=== PATIENT | male | born 1950 | race Caucasian/White ===

== ENCOUNTER 2016-09-26 02:07 | Emergency (ER) | payer BC, MEDICARE ==
[2016-09-26 02:25] VITALS: BP 111/57
[2016-09-26] MEDS ORDERED: Sodium Chloride 0.9% 1,000 ML IV SCH (03:00)
--- NOTE | 2016-09-26 03:08 | EDM.PDOC ---
ED HPI GENERAL MEDICAL PROBLEM - General Chief Complaint: General Stated Complaint: RUE LIMITED MOVEMENT Time Seen by Provider: 09/26/16 02:10 Source of Information: Reports: Patient History Limitations: Reports: No Limitations - History of Present Illness INITIAL COMMENTS - FREE TEXT/NARRATIVE: Pt is a 66/male with PMH of MVR on coumadin from [place], [place] who is here on fishing trip. Pt claims that about 1 wk ago he had fishhook in his right thumb which he took it out himself. Since then he had pain in his right thumb which was a very mild dull pain. But around 6 Pm today he started having pain in his right hand distal to the distal Palmar crease and his finger, but he [place] and soon around 10 PM pain started to get worse and he noticed swelling and redness in the fingers and hand and pain all over the hand. Pain worsens with movement of the fingers. Apparently patient got concerned and came into emergency room. Pt is not sure of his last tetanus shot. No fever or chills. No nausea or vomiting. rate pain at 10/10. Onset: Today Onset Date: 09/26/16 Onset Time: 06:00 Location: Reports: Other (right hand) Quality: Reports: Ache, Throbbing Severity: Severe Right Hand Pain Score (Numeric/FACES): 10 - Related Data Allergies Allergy/AdvReac Type Severity Reaction Status Date / Time No Known Allergies Allergy Verified 09/26/16 02:10 Home Meds: Home Meds Warfarin [Coumadin] 12.5 mg PO DAILY 09/26/16 [History] Past Medical History HEENT History: Reports: Impaired Vision Cardiovascular History: Reports: Stents Respiratory History: Reports: COPD, Other (See Below) Other Respiratory History: Emphysema Hematologic History: Reports: Anticoagulation Therapy - Past Surgical History HEENT Surgical History: Reports: Tonsillectomy Cardiovascular Surgical History: Reports: Valve Replacement, Other (See Below) Other Cardiovascular Surgeries/Procedures: Mitral Valve replacement; Right Rib resection of vein Respiratory Surgical History: Reports: None GI Surgical History: Reports: Appendectomy Social & Family History - Family History Family Medical History: Noncontributory - Tobacco Use Smoking Status *Q: Current Every Day Smoker Years of Tobacco use: 40 Packs/Tins Daily: 2 Used Tobacco, but Quit: No Second Hand Smoke Exposure: No - Caffeine Use Caffeine Use: Reports: Coffee - Alcohol Use Days Per Week of Alcohol Use: 4 Number of Drinks Per Day: 3 Total Drinks Per Week: 12 - Recreational Drug Use Recreational Drug Use: No ED ROS GENERAL - Review of Systems Review Of Systems: See Below Constitutional: Denies: Fever, Chills HEENT: Denies: Rhinitis, Sinus Problem, Throat Pain Respiratory: Denies: Cough, Sputum Cardiovascular: Denies: Chest Pain, Lightheadedness Endocrine: Denies: Fatigue, High Glucose GI/Abdominal: Denies: Abdominal Pain, Flatus, Nausea, Vomiting : Denies: Dysuria, Flank Pain Musculoskeletal: Denies: Shoulder Pain, Arm Pain Skin: Reports: Erythema. Denies: Bruising, Pruritis, Rash Neurological: Denies: Confusion, Dizziness, Headache, Seizure, Syncope ED EXAM, GENERAL - Physical Exam Exam: See Below Exam Limited By: No Limitations General Appearance: Alert, WD/WN, Mild Distress Eye Exam: Bilateral Eye: EOMI, PERRL Ears: Normal External Exam, Normal Canal, Hearing Grossly Normal, Normal TMs Ear Exam: Bilateral Ear: Auricle Normal, Canal Normal, TM normal Nose: Normal Inspection, Normal Mucosa, No Blood Throat/Mouth: Normal Inspection, Normal Lips, Normal Teeth, Normal Gums, Normal Oropharynx, Normal Voice, No Airway Compromise Head: Atraumatic, Normocephalic Neck: Normal Inspection, Supple, Non-Tender, Full Range of Motion Respiratory/Chest: No Respiratory Distress, Lungs Clear, Normal Breath Sounds, No Accessory Muscle Use, Chest Non-Tender Cardiovascular: Normal Peripheral Pulses, Regular Rate, Rhythm, No Edema, No Gallop, No JVD, No Murmur, No Rub Extremities: Other (Rigth hand: There is swellling and erythema of the whole hand including the palmar aspect and the distal dorsal aspect of the hand. The finger are in mid flexed position. Tenderness with even minimal extension of the fingers. tender over the the distal palmar crease to flexion. very minimal movement of the thumb, absent opponens of the thumb.Positive kanavel's sign.) Course - Vital Signs Text/Narrative:: Apparently this patient has developed acute infective flexor tenosynovitis of right hand, which is very quickly progressing over the past 8 hrs. Her has all 4 signs of infective acute tenosynovitis of the hand. I have placed patient's right hand in wrist splint for now. Pt is not sure of his tetanus status, he did receive TD IM, but hospital does not carry Tetanus immunoglobulin, so it has not been given.Also Ancef 2gm Iv and VAncomycin 1 gm IV was ordered. I did call the orthopedist consulting business developer at [facility] and discuss my finding with him. He does agree with the diagnosis and plan of care. He wants patient transferred to [facility] emergency room. Pt's Lab work is back His CBC shows elevated white count of 16.2 k with 89% neutrophils. His CMP is normal and lactic acid level is normal. His INR is 4.2. I have discussed this labs with Dr. Richards, the ER MD at [facility]. Also notified him of Tetanus immunoglobulin not being given. Pt did receive 1mg of Dilaudid for pain. Pt is hemodynamically stable at the time of transfer and further care as per . Last Recorded V/S: Last Vital Signs Temp 98.6 F 09/26/16 02:26 Pulse 96 09/26/16 02:26 Resp 20 09/26/16 02:26 BP 111/57 L 09/26/16 02:26 Pulse Ox 98 09/26/16 02:26 - Orders/Labs/Meds Orders: Active Orders 24 hr Category Date Time Status CBC WITH AUTO DIFF [HEME] Stat Lab 09/26/16 02:23 Ordered COMPREHENSIVE METABOLIC PN,CMP [CHEM] Stat Lab 09/26/16 02:23 Ordered Departure - Departure Time of Disposition: 04:15 Disposition: DC/Tfer to Acute Hospital 02 Condition: Fair Clinical Impression: Other infective (teno)synovitis, right hand - Discharge Information Forms: ED Department Discharge - Problem List & Annotations (1) Other infective (teno)synovitis, right hand SNOMED Code(s): 648046899, 405201004 Code(s): M65.141 - OTHER INFECTIVE (TENO)SYNOVITIS, RIGHT HAND Status: Acute Current Visit: Yes - Problem List Review Problem List Initiated/Reviewed/Updated: Yes - My Orders Last 24 Hours: My Active Orders 09/26/16 02:23 CBC WITH AUTO DIFF [HEME] Stat COMPREHENSIVE METABOLIC PN,CMP [CHEM] Stat - Assessment/Plan Last 24 Hours: My Active Orders 09/26/16 02:23 CBC WITH AUTO DIFF [HEME] Stat COMPREHENSIVE METABOLIC PN,CMP [CHEM] Stat Assessment:: Acute infective tenosynovitis of right hand Plan: Apparently this patient has developed acute infective flexor tenosynovitis of right hand, which is very quickly progressing over the past 8 hrs. Her has all 4 signs of infective acute tenosynovitis of the hand. I have placed patient's right hand in wrist splint for now. Pt is not sure of his tetanus status, he did receive TD IM, but hospital does not carry Tetanus immunoglobulin, so it has not been given.Also Ancef 2gm Iv and VAncomycin 1 gm IV was ordered. I did call the orthopedist consulting business developer at [facility] and discuss my finding with him. He does agree with the diagnosis and plan of care. He wants patient transferred to [facility] emergency room. Pt's Lab work is back His CBC shows elevated white count of 16.2 k with 89% neutrophils. His CMP is normal and lactic acid level is normal. His INR is 4.2. I have discussed this labs with Dr. Richards, the ER MD at [facility]. Also notified him of Tetanus immunoglobulin not being given. Pt did receive 1mg of Dilaudid for pain. Pt is hemodynamically stable at the time of transfer and further care as per .
[2016-09-26] MEDS ORDERED: ceFAZolin 2 GM in Sodium Chloride 0.9% 100 ML IV ONE (03:18)
[2016-09-26] MEDS ORDERED: Diphtheria/Tetanus Toxoids,Adult (Td) 0.5 ML SDV IM ONE (03:21)
[2016-09-26] MEDS ORDERED: Vancomycin 1 GM SDV ONE ×2 (03:30→04:30)
[2016-09-26] MEDS ORDERED: HYDROmorphone 2 MG/ML Syringe ONE (03:54)
== END 2016-09-26 04:30 ==
LOC: LB.ED 02:07
DX: M65.141 Other infective (teno)synovitis, right hand (principal); J44.9 Chronic obstructive pulmonary disease, unspecified; F17.210 Nicotine dependence, cigarettes, uncomplicated; Z90.49 Acquired absence of other specified parts of digestive tract; Z79.01 Long term (current) use of anticoagulants; Z23 Encounter for immunization
CPT/HCPCS: 29125; 36415; 80053; 83605; 85025; 85610; 87040; 90471; 90714; 96365; 96366; 96375; 99284; 99285; A0425; A0429; J0690; J3370; J7030; J7040